=== PATIENT | female | born 1965 ===

== ENCOUNTER 2016-11-18 17:44 | Inpatient (IN) | payer MEDICAID ==
[~2016-11-18] VITALS: Ht 175.3 cm; Wt 80.2 kg
[~2016-11-18 17:44] MED LIST: MELO-259 PO
[2016-11-18 18:00] VITALS: BP 112/71; PULSE 129; RESP 22; O2SAT 100
[2016-11-18 18:23] LABS: EOSINOPHILS % (AUTO) 0.2 % (0-5)
[2016-11-18 18:30] LABS: BASOPHILS % (AUTO) 0.7 % (0-3); MONOCYTES % (AUTO) 10.6 % (4-12); Mean Corpuscular Hemoglobin 29.9 pg (27.0-35.0); Mean Corpuscular Volume 94.7 fL (81-100); NEUTROPHILS % (AUTO) 56.9 % (40-74); Platelet Count 94 bil/L (150-400)
[2016-11-18 18:53] LABS: Magnesium 1.7 mg/dL (1.6-2.6)
--- NOTE | 2016-11-18 20:39 | ED.REPORT ---
HPI-Abd Pain F 40 and Over Date of Service Nov 18, 2016 ED Provider: Nathan Chahal MD A 51 year old female with a history of HIV presents to the ED complaining of abdominal pain. She began feeling a sharp, constant pain yesterday morning in addition to fever, shortness of breath, nausea, vomiting and feeling "off- balanced." The pt has vomited approximately ten times since onset, and states that the vomit appears "dark with yellow on top." She denies diarrhea, chest pain, rash, cough or dysuria. The symptoms have increased in severity since onset. The pt denies recent surgery or exposure to other sick individuals. The pt drinks alcohol regularly, but has not consumed alcohol in two days. She denies withdrawal symptoms. Nursing Notes Stated Complaint: STOMACH PAIN Chief Complaint: Female Abdominal Pain Nursing Notes Reviewed: Yes ([employer] not reconciled) Allergies: Uncoded Allergies: ANTIBIOTIC (Allergy, Unknown, 01/12/15) Scheduled Meloxicam (Meloxicam) 7.5 Mg Tablet 7.5 MG PO DAILY Scheduled PRN Ondansetron ODT (Ondansetron ODT) 8 Mg Tab.rapdis 8 MG PO Q4H PRN PRN For Nausea General Time Seen by MD: 20:23 Chief Complaint Abdominal pain Hx Obtained From: Patient Arrived By: Walk-in Sudden in Onset?: No Onset Occurred: 1 day ago Symptom Duration: Since onset Recent Healthcare: No recent hospitalization Similar Sx Previous: No Past Medical History Past Medical History Notes: Infectious disease MD is in [place] Past Medical History HIV ?h/o liver Past Surgical History none reported Family History Noncontributory Smoking History Never Smoker Social History Alcohol Use: 1-3 per day Other Social History: Good social support, Local resident Ambulatory Status Independent Review of Systems feeling off-balanced Constitutional: Reports: Fever Respiratory: Reports: Shortness of breath, Denies: Non-productive cough Cardiovascular: Denies: Chest pain GI: Reports: Nausea, Vomiting ("dark"), Denies: Diarrhea Female: Denies: Dysuria Musculoskeletal: Denies: Back pain, Neck pain Complete sys rev & neg: except as marked. Physical Exam Physical Exam Notes: no overt signs of surgical admit on clinical exam Vital Signs Vital Signs (First) Date Time Temp Pulse Resp B/P Pulse Ox O2 Delivery O2 Flow Rate FiO2 11/18/16 18:00 36.7 129 22 112/71 100 Room Air Initial VS: Reviewed, Vital signs normal General/Constitutional: Awake, Alert fatigued Respiratory / Chest: Atraumatic, Breath sounds NL, Breath sounds = bilat, No respiratory distress Cardiovascular: Regular rhythm, Heart sounds NL Heart Rate / Rhythm: Positive: Tachycardia Abdomen: Atraumatic, Soft, No guarding, No rebound trace tenderness Back: Atraumatic, Full range of motion Head / Eyes: Atraumatic, Normocephalic, PERRL, EOMI ENT: Atraumatic, Airway patent, Mucous membranes moist Skin: Atraumatic, Color NL, No rash, Warm, Dry Neurologic: Oriented X3, Speech NL, No motor deficits, No sensory deficits Neck: Atraumatic, Supple, Full range of motion Upper Extremity / MS: Atraumatic, Full range of motion Lower Extremity / Pelvis / MS: Atraumatic, Full range of motion Psychiatric: Affect NL, Mood NL Interpretation & Diagnostics Lab Results Interpretation Result Diagram: 11/19/16 0135 11/18/16 1815 Test 11/18/16 18:15 11/19/16 00:50 11/19/16 01:35 Neutrophils (%) (Auto) 56.9% (40-74) Lymphocytes (%) (Auto) 31.4% (14-46) Monocytes (%) (Auto) 10.6% (4-12) Eosinophils (%) (Auto) 0.2% (0-5) Basophils (%) (Auto) 0.7% (0-3) Prothrombin Time 14.5sec (8.1-12.5) Prothromb Time International Ratio 1.35ratio Sodium Level 140mEq/L (134-144) Potassium Level 4.1mEq/L (3.5-5.2) Chloride Level 102mEq/L (97-108) Carbon Dioxide Level 24mmol/L (18-29) Blood Urea Nitrogen 14mg/dL (6-24) Creatinine 0.43mg/dL (0.57-1.00) Estimat Glomerular Filtration Rate 221mL/min (>59) Glucose Level 94mg/dL (60-99) Calcium Level 8.6mg/dL (8.5-10.1) Magnesium Level 1.7mg/dL (1.6-2.6) Total Bilirubin 1.7mg/dL (0.0-1.2) Aspartate Amino Transf (AST/SGOT) 104U/L (0-50) Alanine Aminotransferase (ALT/SGPT) 37U/L (0-32) Alkaline Phosphatase 124U/L (25-150) Total Protein 7.2g/dL (6.4-8.4) Albumin 2.9g/dL (3.4-5.0) Lipase 55U/L (13-60) Hold Chandler Top Tube Received (Received) Urine Color Yellow (YELLOW) Urine Appearance Slightly cloudy Urine pH 7.5 (5.0-8.0) Urine Specific [place] 1.010 (1.003-1.035) Urine Protein Negativemg/dL (NEG,TRACE) Urine Glucose (UA) Negativemg/dL (NEGATIVE) Urine Ketones 15mg/dL (NEGATIVE) Urine Occult Blood Negative (NEGATIVE) Urine Nitrite Positive (NEGATIVE) Urine Bilirubin Negative (NEGATIVE) Urine Urobilinogen Normalmg/dL (NORMAL) Urine Leukocyte Esterase Negative (NEGATIVE) Urine RBC 0-2/hpf (0-2) Urine WBC 0-5/hpf (0-5) Urine Epithelial Cells Occasional/hpf (NONE-MOD) Urine Crystals None seen (NONE SEEN) Urine Bacteria Moderate/hpf (NONE-FEW) Urine Hyaline Casts None/lpf (NONE) Urine Granular Casts None seen (NONE SEEN) Urine Waxy Casts None seen (NONE SEEN) Urine Red Blood Cell Casts None seen (NONE SEEN) Urine White Blood Cell Casts None seen (NONE SEEN) Urine Mucus None seen (None Seen) Urine Trichomonas None seen (NONE SEEN) Urine Yeast None (NONE SEEN) Urinalysis Comment None Urine Culture Reflexed Indicated White Blood Count 4.0th/mm3 (3.8-10.1) Red Blood Count 3.05mil/mm3 (3.90-5.20) Hemoglobin 9.2g/dL (12.0-15.6) Hematocrit 29.1% (35.0-46.0) Mean Corpuscular Volume 95.4fL (81-100) Mean Corpuscular Hemoglobin 30.2pg (27.0-35.0) Mean Corpuscular Hemoglobin Concent 31.6% (32.0-37.0) Red Cell Distribution Width 15.7% (12.3-15.4) Platelet Count 71bil/L (150-400) Lab Results Interpretation: CBC normal, with mild anemia, mild thrombocytopenia of chronic liver disease repeat hematocrit goes a drop in hematocrit, platelet count also mildly low CMP abnormalities, chronic INR ECG Interpretation ECG Interpretation: sinus tachycardia with a rate of 112 Time: 19:37 Interpreted by: ED physician CT Abd / Pelvis Interpretation IMPRESSION: 1. No acute disease process identified. 2. No free fluid or free air. 3. No dilated loops of bowel. 4. Hepatic cirrhosis with sequela of portal venous hypertension including gastroesophageal, mesenteric and perisplenic venous varices. 5. Status post cholecystectomy. 6. 4 mm nonobstructing right renal stone. 7. 2.2 cm right adrenal nodule. Recommend dedicated MRI of the adrenal glands for definitive characterization. 8. Colonic diverticulosis without evidence of diverticulitis. 1. The appendix is normal. Dictated by: Jayne Vigil MD, PhD on 11/18/2016 at 21:36 Approved by: Jayne Vigil MD, PhD on 11/18/2016 at 21:44 Interpretation / Wet Read by: Interpret - Radiologist Re-Eval/Medical Decision Med Decision/Clinical Course This is a 51-year-old female presents complaining of abdominal pain and vomiting. She reports about 10 episodes of emesis overall, reports some changing colors, maybe some dark material. No fevers. No prior history of GI bleeding. She denies NSAID or aspirin use. Only medications are for HIV. She reports she is generally done well from an HIV standpoint. She has no prior history of GI bleeding or peptic ulcer disease. On initial exam she is notably tachycardic, but is normotensive. She appears fatigued, but nontoxic. Her abdomen is mildly tender, but without guarding or rebound. IV was placed received titrated pain and nausea medicine but continued to have some ongoing nausea. She had no point had a clinically acute surgical abdomen or peritonitis. I will reveal no significant leukocytosis but is notable for trace anemia and mild thrombocytopenia. Chest has some marginal LFT abnormalities. CT abdomen and pelvis was obtained that was normal. She initially seemed to be doing better fluids and pain and nausea medicine and initial plan was to discharge her home, and then the patient had recurrence of the nausea vomiting requiring additional medicines-she vomited some brownish material that was guaiac positive. At this point it was also noted she was still persistently tachycardic despite fluid, so this point repeat labs were obtained-this was notable for marginal drop in hematocrit down to 29 with worsening anemia. She had received 2 L of fluids of the differential includes hemorrhage versus hemodilution. Both ongoing symptoms, anemia, thrombocytopenia , and persistent symptoms-at this point the plan is admission for continued monitoring and a.m. GI consultation. Patient is being typed and crossed, she has been started up a chronic degenerative given the persistent tachycardia, anemia, hematemesis. The presentation is atypical for classic dyspepsia, and the differential includes a Valeria-Chen tear, but as described above all features are not sufficient to indicate a need for admission for continued care. System discussed with the hospitalist. Given the patient's heart rate is improved, given she is currently stable and is not a need for emergent EGD at this late hour, the plan is to have the a.m. hospitalist call GI for consultation. Repeat hematocrits planned for the morning. Patient is admitted in improved condition. Source of Hx: Old records Re-Evaluation/Progress #1: Time of Eval: 00:40 Re-Evaluation/Progress Note: Pt rechecked, who is resting. The plan for further treatment is discussed. Re-Evaluation/Progress #2: Time of Eval: 02:29 Patient Status: Condition improved Re-Evaluation/Progress Note: Pt rechecked, who is resting. The diagnosis and plan for admission are discussed. The pt understands and agrees with the plan. All questions are addressed at this time. 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 Mazariegos, hospitalist, regarding pt's case. Dr. Mazariegos agrees with the evaluation and agrees to admit the pt. Differential Diagnosis: Positive: Acute abdominal pain, Negative: Cellulitis, Contusion abdominal wall, Ectopic , Esophageal rupture, Gun shot wound abdomen, Pancreatitis, Peritonitis Counseled Regarding: Diagnosis, Lab results, Need for admission Discharge & Departure Primary Impression: Abdominal pain Abdominal location: unspecified location Qualified Code: R10.9 - Unspecified abdominal pain Additional Impressions: GI bleed GI bleed type/associated pathology: unspecified gastrointestinal hemorrhage type Qualified Code: K92.2 - Gastrointestinal hemorrhage, unspecified Anemia Anemia type: unspecified type Qualified Code: D64.9 - Anemia, unspecified Thrombocytopenia Tachycardia Disposition: ADMITTED TO HOSPITAL Discharge Condition All VS Reviewed: Yes Condition: Stable Additional Instructions: 1. A dangerous or definitive cause of the abominal pain was not identified. 2. Your blood tests, urine tests, and CT Scan were normal. 3. Rest. 4. Take ondansetron (let dissolve under the tongue) up to every 4 hours as needed for nausea. 5. If needed for pain take oxycodone/APAP 5/325 1-2 tabs up to every 6 hours. Use sparingly. NOTE: This medication contains narcotic and causes drowsiness, no driving for at least 4-6 hours after taking 6. In terms or expected to be resolving with time. If he developed new, worsening or uncontrolled symptoms, return to the emergency department. Referrals: [facility] Scribe Attestation Portions of this note were transcribed by Milvia Lomax. I, Dr. Chahal personally performed the history, physical exam and medical decision-making; I reviewed and confirmed the accuracy of the information in the transcribed note. Signed by: Alicia Burciaga, 11/19/2016 and 0235. copies to: [facility] Nathan Chahal MD Nov 18, 2016 20:39 MILVIA LOMAX Nov 18, 2016 20:49
[2016-11-18] MEDS ORDERED: Ondansetron 2 mg/mL 2 mL Inj IVPUSH ONE (20:50)
[2016-11-18] MEDS ORDERED: 0.9% Sodium Chloride 1,000 ML IV ONE ×2 (20:50)
[2016-11-18] MEDS ORDERED: HYDROmorphone 0.5 mg/0.5 mL iSecure Syringe IVPUSH PRN (20:50)
--- NOTE | 2016-11-18 21:45 | DRSVH ---
PROCEDURE: CT ABDOMEN AND PELVIS WITH CONTRAST ([id number]) INDICATIONS: ABd Pain TECHNIQUE: After the administration of intravenous contrast, 5 mm thick sections acquired from the diaphragm to the symphysis. 5 mm coronal and sagittal reformats were acquired. For radiation dose reduction, the following was used: automated exposure control, adjustment of mA and/or kV according to patient siz e. COMPARISON: None. FINDINGS: Image quality: Excellent. ABDOMEN: Lung bases: Lung bases are clear. Heart size is normal. Solid organs: Liver is nodular margins compatible with hepatic cirrhosis. Diffuse fatty infiltratio n the liver is noted. Recanalization of the umbilical vein is noted. Gastroesophageal and perisplen ic venous varices are noted. The portal splenic venous system demonstrates normal enhancement. Gall bladder is surgically absent the. Biliary system is non dilated. Pancreas enhances normally. 2.2 cm right adrenal nodule is noted which has density measurements of 31 Hounsfield units. Kidneys demons trate normal size and enhancement, without hydronephrosis. 4 mm nonobstructing left renal stone is no agnes. Peritoneum and bowel: Bowel loops demonstrate normal wall thickness and caliber. Scattered diverticu li noted in the sigmoid colon without evidence of diverticulitis. No free fluid or air. The appendix is normal. Nodes and vessels: No retroperitoneal or mesenteric adenopathy by size criteria. Aorta and inferior vena cava are normal in size. Miscellaneous: No ventral hernias. PELVIS: Genitourinary: Bladder wall thickness is normal. Miscellaneous: No inguinal hernias or adenopathy. Bones: No suspicious bony lesions. No vertebral body compression fractures. Spine degenerative dise ase and facet arthropathy noted. IMPRESSION: 1. No acute disease process identified. 2. No free fluid or free air. 3. No dilated loops of bowel. 4. Hepatic cirrhosis with sequela of portal venous hypertension including gastroesophageal, mesenter ic and perisplenic venous varices. 5. Status post cholecystectomy. 6. 4 mm nonobstructing right renal stone. 7. 2.2 cm right adrenal nodule. Recommend dedicated MRI of the adrenal glands for definitive charac terization. 8. Colonic diverticulosis without evidence of diverticulitis. 1. The appendix is normal. Dictated by: Jayne Vigil MD, PhD on 11/18/2016 at 21:36 Approved by: Jayne Vigil MD, PhD on 11/18/2016 at 21:44
[2016-11-18 22:00] VITALS: BP 127/53; PULSE 119; RESP 18; O2SAT 99
[2016-11-18 23:00] VITALS: BP 117/55; PULSE 115; RESP 18; O2SAT 99
[2016-11-19] VITALS (11 sets, daily range): BP systolic 103–119; BP diastolic 51–66; PULSE 78–119; RESP 16–20; O2SAT 96–99
[2016-11-19] MEDS ORDERED: HYDROmorphone 0.5 mg/0.5 mL iSecure Syringe IVPUSH ONE (00:45)
[2016-11-19] MEDS ORDERED: _Ondansetron ODT 4 mg Tablet PO PRN (00:45)
[2016-11-19] MEDS ORDERED: _oxyCODONE/APAP 5-325 mg Tablet PO PRN (00:45)
[2016-11-19] MEDS ORDERED: ONDA8TAB10 PO (00:53)
[2016-11-19] MEDS ORDERED: Ondansetron 2 mg/mL 2 mL Inj IVPUSH PRN ×5 (01:05→16:40)
[2016-11-19 01:20] LABS: APPEARANCE,URINE SLIGHTLY CLOUDY (CLEAR,HAZY); COLOR,URINE YELLOW (YELLOW); OCCULT BLOOD,URINE NEGATIVE (NEGATIVE); PH,URINE 7.5 (5.0-8.0); UROBILINOGEN,URINE NORMAL (NORMAL)
[2016-11-19 01:48] LABS: Mean Corpuscular Hemoglobin 30.2 pg (27.0-35.0); Mean Corpuscular Volume 95.4 fL (81-100)
[2016-11-19] MEDS ORDERED: Pantoprazole 4 mg/mL 10 mL Inj IVPUSH ONE (02:00)
[2016-11-19] MEDS ORDERED: Pantoprazole Inj 80 MG, Pharmacy To Mix 1 EA in 0.9% Sodium Chloride 80 ML IV ONE ×2 (02:00)
[2016-11-19 02:24] LABS: INR 1.35 ratio
[2016-11-19] MEDS ORDERED: Alum-Mag Hydrox-Simeth 30 mL Suspension PO PRN ×2 (02:35→13:25)
[2016-11-19] MEDS ORDERED: HYDROmorphone 1 mg/mL Inj IVPUSH PRN (02:35)
--- NOTE | 2016-11-19 03:30 | NUR ---
Admission Pt arrived to Room 2027 at approximately 0330 with protonix running at 10ml/hr and was able to walk with a steady gait from the gurney to the bed. Pt is AOx3, and GUY, and VSS. Pt sat on bed and had approximately 75ml brown, watery emesis and had bright red blood coming from nose once the pt was done vomiting.
[2016-11-19 05:53] LABS: BASOPHILS % (AUTO) 0.3 % (0-3); EOSINOPHILS % (AUTO) 0 % (0-5); MONOCYTES % (AUTO) 7.5 % (4-12); Mean Corpuscular Hemoglobin 29.9 pg (27.0-35.0); Mean Corpuscular Volume 96.3 fL (81-100); Platelet Count 71 bil/L (150-400)
--- NOTE | 2016-11-19 07:20 | PCM.PNMED ---
Subjective Date of Service Nov 19, 2016 Subjective Mariano Guevara is a 51 year old female with past medical history of HIV, who presents to the ED with chief complaint of abdominal pain. She began feeling a sharp, constant pain yesterday morning in addition to fever, shortness of breath, nausea, vomiting and feeling "off-balanced." The pain is right sided and symptoms have increased in severity since onset. She mentions she's vomited 10 times since this has started and reports seeing some blood. She denies diarrhea, chest pain, rash, cough, or dysuria. She mentions she's been urinating more lately, but no dysuria. She does have history of kidney stones, which she mentions the pain feels similar to. She's having some associated back pain. She denies any history of abdominal surgeries. Last bowel movement was 2 days ago and she has been passing gas. She denies any sick contacts and mentions she has her usual meals lately. She has been drinking 6 beers daily for the last month, with her last drink reportedly 2 days ago. She denies history of seizures or any withdrawal symptoms at this time. In the ED, she had an episode of guiaic positive emesis and a slight decrease in hemoglobin from 10.2 to 9.2, so she was subsequently admitted for monitoring. Exam Vital Signs Vital Sign - Last Date Time Temp Pulse Resp B/P Pulse Ox O2 Delivery O2 Flow Rate FiO2 11/19/16 05:24 103 11/19/16 03:52 36.6 20 106/58 99 Room Air Intake and Output 11/18/16 11/18/16 11/19/16 Cumulative From/Thru 15:00 23:00 07:00 11/18/16 18:00 - 11/19/16 03:52 Intake Total 2000 ml 2000 ml Balance 2000 ml 2000 ml Intake IV Total 2000 ml 2000 ml Exam General: Mild distress due to dry heaving throughout encounter, well-developed, well-nourished, somewhat somnolent as awaken from sleep. HEENT: Normocephalic, atraumatic. External ears without defect. Pupils equal, round, and reactive to light and accommodation. Anicteric sclerae, moist conjunctivae. Oropharynx free of erythema and cobble stoning with moist mucosa. Neck: Supple with full range of motion. No jugular venous distension. No bruits. No lymphadenopathy or thyromegaly. Cardiovascular: Regular rate and rhythm with no murmurs, rubs, or gallops appreciated Pulmonary: Clear to auscultation bilaterally with no crackles, wheezes, or rhonchi. Normal respiratory effort with no use of accessory muscles. Abdomen: Bowel tones present. Soft, RUQ and RLQ tenderness, positive segundo's sign, nondistended. No hepatosplenomegaly or masses appreciated. No rebound tenderness. Extremities: No clubbing, cyanosis, edema, or lymphadenopathy appreciated. Skin: Normal temperature, turgor, and texture; no rash, ulcers. Neurological: Cranial nerves grossly intact. Normal muscle strength, tone, and bulk. Reflexes, coordination, and sensory function within normal limits. No known gait impairment. Psychiatric: Normal mood and affect. Alert and oriented to person, place, and time. Lab and Diagnostics Item Value Date Time Urine Color Yellow 11/19/1649 Urine pH 7.5 11/19/1649 Urine Occult Blood Negative 11/19/1649 Urine Nitrite Positive 11/19/1649 Urine Leukocyte Esterase Negative 11/19/1649 Urine RBC 0-2 /hpf 11/19/1649 Urine WBC 0-5 /hpf 11/19/1649 Urine Bacteria Moderate /hpf 11/19/1649 Lipase 55 U/L 11/18/161814 Hemoglobin 10.2 g/dL L 11/18/161814 Hemoglobin 9.2 g/dL L 11/19/16134 Hemoglobin 8.8 g/dL L 11/19/16524 Hematocrit 32.3 % L 11/18/161814 Hematocrit 29.1 % L 11/19/16134 Hematocrit 28.3 % L 11/19/16524 Prothrombin Time 14.5 sec H 11/18/161814 Prothromb Time International Ratio 1.35 ratio 11/18/161814 Result Diagram: 11/19/1652411/19/16529 Microbiology Item Value Date Time Urine Culture Received 11/19/1649 Urine,Random Sterile Container Pending X-Rays, CTs and MRIs PROCEDURE: CT ABDOMEN AND PELVIS WITH CONTRAST ([id number]) IMPRESSION: 1. No acute disease process identified. 2. No free fluid or free air. 3. No dilated loops of bowel. 4. Hepatic cirrhosis with sequela of portal venous hypertension including gastroesophageal, mesenteric and perisplenic venous varices. 5. Status post cholecystectomy. 6. 4 mm nonobstructing right renal stone. 7. 2.2 cm right adrenal nodule. Recommend dedicated MRI of the adrenal glands for definitive characterization. 8. Colonic diverticulosis without evidence of diverticulitis. 1. The appendix is normal. Dictated and Approved by: Jayne Vigil MD, PhD on 11/18/2016 at 21:36 Assessment & Plan Mariano Guevara is a 51 year old female with past medical history of HIV, who presents to the ED with chief complaint of abdominal pain found to have guiaic positive emesis with normocytic anemia. Normocytic Anemia, Present on admission. Active Unclear if this is secondary to an acute upper GI bleed, however hemoglobin has been very slowly downtrending and patient did have guiaic positive emesis in the ED. May be secondary to hemodilution as well. - Monitor H/H q4h - Dr. Glass to do scope 11/20/16 - NPO after midnight - Transfusion goal: If hemoglobin is less than 7, transfuse 2 units PRBC's. Abdominal Pain, Present on admission. Active Patient had 10/10 pain on presentation, worse on the right side. Positive Segundo 's sign. Patient mention she has never had her gallbladder removed, but CT scan report shows status post cholecystectomy. 4 mm nonobstructing stone on CT on the right. Worse with movement. - Abdominal US ordered - Morphine 0.5 mg IV q4h for pain - Zofran for nausea Alcohol dependence, Present on admission. Active Patient has been drinking 6 beers a day for the last month, reportedly 2 days out from her last drink - CIWA protocol started - Ativan as needed - Banana bag started HIV, Present on admission, Chronic Per patient report. Unknown history or control of HIV. - Will order CD4 and Viral Load Code Status: Full code Patient Status: Patient is admitted under observation status with expected length of stay less than 2 midnights due to risk of adverse event. GI Prophylaxis: Proton Pump Inhibitor (Protonix drip) VTE Prophylaxis: SCDs Resuscitation Status: CPR: Attempt Resuscitation Yeison Springer DO Nov 19, 2016 07:20 Yeison Springer DO Nov 19, 2016 07:20
[2016-11-19] MEDS: 0.9% Sodium Chloride 1,000 ML IV SCH ×2 (09:54→13:26)
[2016-11-19] MEDS ORDERED: Thiamine Inj 100 MG, Folic Acid Inj 1 MG, Magnesium Sulfate 50% Inj 2 GM, Multivitamins... IV ONE ×5 (11:05)
[2016-11-19] MEDS: Multivit-Miner-Folic Acid-Iron Tablet PO SCH (11:05)
[2016-11-19] MEDS ORDERED: Polyethylene Glycol (PEG) 17 Gm Powder PO PRN (13:25)
[2016-11-19] MEDS: Pantoprazole Inj 80 MG in 0.9% Sodium Chloride 80 ML IV SCH (13:32)
--- NOTE | 2016-11-19 18:58 | NUR ---
Dry Heaving/Drowsy/Pain No reports of chest pain/pressure/discomfort. Tele SR 80s, no ectopy. No reports of SOB/dizziness. SPO2 on RA mid to high 90s. Reports rare dry cough. No voiding throughout AM, one large void this afternoon of 1,000mls. Reports continuous mild-moderate nausea, intermittent episodes of dry heaving with no emesis. Administered 4mg IV zofran x1, no further dry heaving. NPO at midnight for possible endo intervention in AM. Reports continuous abdominal pain (right upper quadrant that wraps around to back) 7-8/10 at rest. Patient drowsy and slept throughout most of shift. Administered 0.5mg IV Dilaudid x1 with scheduled 1 time dose of Ketorolac IV, patient reported relief. Last check in at 1840, reports she is feeling mildly better.
--- NOTE | 2016-11-19 19:56 | PCM.HPMED ---
Subjective Date of Service Nov 19, 2016 Primary Provider: Admitting Physician: Leisa Mazariegos DO Primary Care Physician: Rachell Attending Physician: Krishna Souza MD Admit Status: From the Emergency Department Chief Complaint: Abdominal Pain Hematemesis History of Present Illness: Mariano Guevara is a 51 year old female with past medical history of HIV, who presents to the ED with chief complaint of abdominal pain. She began feeling a sharp, constant pain yesterday morning in addition to fever, shortness of breath, nausea, vomiting and feeling "off-balanced." The pain is right sided and symptoms have increased in severity since onset. She mentions she's vomited 10 times since this has started and reports seeing some blood. She denies diarrhea, chest pain, rash, cough, or dysuria. She mentions she's been urinating more lately, but no dysuria. She does have history of kidney stones, which she mentions the pain feels similar to. She's having some associated back pain. She denies any history of abdominal surgeries. Last bowel movement was 2 days ago and she has been passing gas. She denies any sick contacts and mentions she has her usual meals lately. She has been drinking 6 beers daily for the last month, with her last drink reportedly 2 days ago. She denies history of seizures or any withdrawal symptoms at this time. In the ED, she had an episode of guiaic positive emesis and a slight decrease in hemoglobin from 10.2 to 9.2, so she was subsequently admitted for monitoring. Review of Systems: A comprehensive review of systems was conducted with the patient and found to be negative except as above in the History of Present Illness. Allergies Uncoded Allergies: ANTIBIOTIC (Allergy, Unknown, 01/12/15) Home Medications She is uncertain of her medications, but mentions she takes 2 for HIV PMH HIV Surgical History None Reported Family History Noncontributory Social History Hx Alcohol Use: Yes (says hasn't had a drink in a few days) Alcoholic Drinks Per Day: 6 pack or more Hx Substance Use: Yes Smoking Status: Never Smoker Exam Vital Signs Vital Sign - Last Date Time Temp Pulse Resp B/P Pulse Ox O2 Delivery O2 Flow Rate FiO2 11/19/16 17:05 37.2 78 18 110/62 96 Room Air Intake and Output 711/18/16 11/19/16 Cumulative From/Thru 15:00 23:00 07:00 11/18/16 18:00 - 11/19/16 03:52 Intake Total 2000 ml 2000 ml Balance 2000 ml 2000 ml Intake IV Total 2000 ml 2000 ml Exam General: Mild distress due to dry heaving throughout encounter, well-developed, well-nourished, somewhat somnolent as awaken from sleep. HEENT: Normocephalic, atraumatic. External ears without defect. Pupils equal, round, and reactive to light and accommodation. Anicteric sclerae, moist conjunctivae. Oropharynx free of erythema and cobble stoning with moist mucosa. Neck: Supple with full range of motion. No jugular venous distension. No bruits. No lymphadenopathy or thyromegaly. Cardiovascular: Regular rate and rhythm with no murmurs, rubs, or gallops appreciated Pulmonary: Clear to auscultation bilaterally with no crackles, wheezes, or rhonchi. Normal respiratory effort with no use of accessory muscles. Abdomen: Bowel tones present. Soft, RUQ and RLQ tenderness, positive segundo's sign, nondistended. No hepatosplenomegaly or masses appreciated. No rebound tenderness. Extremities: No clubbing, cyanosis, edema, or lymphadenopathy appreciated. Skin: Normal temperature, turgor, and texture; no rash, ulcers. Neurological: Cranial nerves grossly intact. Normal muscle strength, tone, and bulk. Reflexes, coordination, and sensory function within normal limits. No known gait impairment. Psychiatric: Normal mood and affect. Alert and oriented to person, place, and time. Lab and Diagnostics Labs Item Value Date Time Urine Color Yellow 11/19/16 0050 Hemoglobin 8.5 g/dL L 11/19/16 1319 Hematocrit 27.5 % L 11/19/16 1319 Hemoglobin 8.8 g/dL L 11/19/16 0525 Hematocrit 28.3 % L 11/19/16 0525 Lipase 55 U/L 11/18/16 1815 Aspartate Amino Transf (AST/SGOT) 104 U/L H 11/18/16 181 Alanine Aminotransferase (ALT/SGPT) 37 U/L H 11/18/16 181 Alanine Aminotransferase (ALT/SGPT) 30 U/L 11/19/16 0530 Aspartate Amino Transf (AST/SGOT) 95 U/L H 11/19/16 0530 Result Diagram: 11/19/16 1810 11/19/16 05 Microbiology Item Value Date Time Urine Culture Received 11/19/16 0050 Urine,Random Sterile Container Pending X-Rays, CTs and MRIs PROCEDURE: CT ABDOMEN AND PELVIS WITH CONTRAST ([id number]) IMPRESSION: 1. No acute disease process identified. 2. No free fluid or free air. 3. No dilated loops of bowel. 4. Hepatic cirrhosis with sequela of portal venous hypertension including gastroesophageal, mesenteric and perisplenic venous varices. 5. Status post cholecystectomy. 6. 4 mm nonobstructing right renal stone. 7. 2.2 cm right adrenal nodule. Recommend dedicated MRI of the adrenal glands for definitive characterization. 8. Colonic diverticulosis without evidence of diverticulitis. 1. The appendix is normal. Dictated and Approved by: Jayne Vigil MD, PhD on 11/18/2016 at 21:36 12-lead ECG Sinus Tachycardia Assessment & Plan Mariano Guevara is a 51 year old female with past medical history of HIV, who presents to the ED with chief complaint of abdominal pain found to have guiaic positive emesis with normocytic anemia. Normocytic Anemia, Present on admission. Active Unclear if this is secondary to an acute upper GI bleed, however hemoglobin has been very slowly downtrending and patient did have guiaic positive emesis in the ED. May be secondary to hemodilution as well. - Monitor H/H q4h - Dr. Glass to do scope 11/20/16 - NPO after midnight - Transfusion goal: If hemoglobin is less than 7, transfuse 2 units PRBC's. Abdominal Pain, Present on admission. Active Patient had 10/10 pain on presentation, worse on the right side. Positive Segundo 's sign. Patient mention she has never had her gallbladder removed, but CT scan report shows status post cholecystectomy. 4 mm nonobstructing stone on CT on the right. Worse with movement. - Abdominal US ordered - Morphine 0.5 mg IV q4h for pain - Zofran for nausea Alcohol dependence, Present on admission. Active Patient has been drinking 6 beers a day for the last month, reportedly 2 days out from her last drink - CIWA protocol started - Ativan as needed - Banana bag started HIV, Present on admission, Chronic Per patient report. Unknown history or control of HIV. - Will order CD4 and Viral Load Code Status: Full code Patient Status: Patient is admitted under observation status with expected length of stay less than 2 midnights due to risk of adverse event. GI Prophylaxis: Proton Pump Inhibitor (Protonix drip) VTE Prophylaxis: SCDs Resuscitation Status: CPR: Attempt Resuscitation Attending Statement The patient was seen and examined together with Dr. Springer on 11/19/2016 and I agree with the history, exam and plan as outlined in the note above. . Yeison Springer DO Nov 19, 2016 19:56 Krishna Souza MD Nov 20, 2016 07:44
[2016-11-20] VITALS (13 sets, daily range): BP systolic 97–117; BP diastolic 56–62; PULSE 73–82; RESP 14–16; O2SAT 95–100
[2016-11-20] MEDS ORDERED: Propofol 10,000 mCg/mL 20 mL Inj ONE (03:07)
[2016-11-20] MEDS: Pantoprazole Inj 80 MG in 0.9% Sodium Chloride 80 ML IV SCH ×2 (03:49→07:30)
--- NOTE | 2016-11-20 06:53 | NUR ---
Toileting Pt got up to use the toilet only once during the operative supervisor. Pt's urine was very cloudy rissa and blood tinged. Pt did have a medium, formed brown stool and it was in the toilet so no GUAIAC could be done. The pt's toilet paper had a smear of landy blood on it. Pt was asked if she has hemorrhoids and the pt denied having hemorrhoids. Pt was asked if she still menstruated and pt said that she no longer has periods. Pt was asked if her urine normally looked like this and she said that it didn't and denied any pain upon urination. Pt's total output was 1,000cc of urine.
[2016-11-20] MEDS: Multivit-Miner-Folic Acid-Iron Tablet PO SCH (08:30)
[2016-11-20] MEDS: cefTRIAXone Inj 1,000 MG in Dextrose 5% Minibag Plus 50 ML IV SCH (11:00)
[2016-11-20] MEDS ORDERED: MetoCLOpramide 5 mg/mL 2 mL Inj IVPUSH PRN (11:10)
[2016-11-20] MEDS ORDERED: Lactated Ringer's 1,000 ML IV SCH (11:10)
[2016-11-20] MEDS ORDERED: Lactated Ringer's 1,000 ML IV ONE (11:10)
[2016-11-20] MEDS ORDERED: Ondansetron 2 mg/mL 2 mL Inj IVPUSH PRN (11:10)
--- NOTE | 2016-11-20 11:12 | PCM.HPANE ---
Patient Data Date of Service: Nov 20, 2016 Surgeon Admitting Provider:Leisa Mazariegos DO Attending Provider:Krishna Souza MD Primary Care Physician:Nopcp Other Provider: Reason for Visit Gi Bleed/Anemia Ht/WT & BMI Height (Feet): 5 Height (Inches): 9.00 Weight (Kilograms): 80.700 Body Mass Index 26.58 Allergies Uncoded Allergies: ANTIBIOTIC (Allergy, Unknown, 01/12/15) Past Anesthesia History Anesthesia History: Denies:: Abnormal Airway, Anesthesia Reactions Diabetes History Hx Diabetes?: No MRSA MRSA: Yes Medications Hypertension Medication: No Home Meds Incl Beta Daniel: No Active Scripts Ondansetron ODT 8 Mg Tab.rapdis8 Mg PO Q4H PRN For Nausea #10 TABLET Prov:Nathan Chahal MD 11/19/16 Meloxicam 7.5 Mg Tablet7.5 Mg PO DAILY #30 TABLET Ref 0 Prov:Ace Godoy MD 01/19/16 History History of ENT Problems?: No HEENT History: Denies:: Abnormal Airway Denture Type: None Teeth Condition: Broken Teeth Tooth Decay Missing Teeth Hx of Heart Problems?: Yes (tachycardia) Cardiovascular History: Denies:: Congestive Heart Failure Hypertension Hx of Respiratory Problem?: Yes Respiratory History: Positive for:: Dyspnea (when pt has a panic attack) Denies:: Asthma COPD Chest Surgery Emphysema Hemoptysis Pneumonia Tuberculosis Hx Neurologic Problems?: Yes Neurological History: Positive for:: CVA (residual left-sided weakness) Headaches Denies:: Dementia Dizziness Parkinson's Disease Seizures Hx of GI Problems?: Yes (abdominal pain) Gastrointestinal History: Positive for:: Cirrhosis Hx of Problems?: Yes Genitourinary History: Positive for:: Kidney Stones HX of Peritoneal Dialysis: No Female Hx: Denies:: Currently Endometriosis Pelvic Inflammatory Problems with Breasts? Hx Musculoskeletal Problems?: No Musculoskeletal History: Denies:: Back Injury Joint Replacement Musculoskeletal Trauma Hx of Psycho/Social Problems?: Yes Psycho Social History: Positive for:: Anxiety Hx Depression Denies:: Bipolar Disorder Suicide Attempt Hx Surgeries?: No Hx Any Other Health Problems?: Yes (HIV) Other History: Denies:: Cancer Hospitalization Thyroid Disease History Blood Transfusions: Positive for:: Accept Blood Products? Blood Transfusions Denies:: Blood Transfuse Reaction Hx Diabetes: No Hx Alcohol Use: Yes (says hasn't had a drink in a few days)Alcoholic Drinks Per Day: 6 pack or moreHx Substance Use: Yes Smoking Status: Never Smoker Have You Smoked inLast 12 mo: No Stop/Bang Treated for Sleep Apnea?: No Do You Have a CPAP Machine?: No S-Snoring: Do You Snore Loudly: No T-Tired: feel tired, fatigued: No O-Obsered: Observed not breath: No P-Blood Pressure: treated: No B- Body Mass Index > 35 kg/m2: No A- Age over 50: Yes N- Neck Large Circumference: No G- Gender Male: No EVIE Total Score: 0 Risk Assessment Category Category 1A: Patient has history of documented sleep apnea, and HAS NOT received any narcotic, sedative or anesthesia administration during this stay. Category 1B: Patient has history of documented sleep apnea, and HAS received any narcotic , sedative or anesthesia administration during this stay Category 2: Patient has SUSPECTED Obstructive Sleep Apnea, and HAS received any narcotic , sedative or anesthesia administration during this stay. Category 3: Patient has SUSPECTED Obstructive Sleep Apnea and HAS NOT received narcotic, sedative or anesthesia administration during this stay. Category 4: Outpatient in Procedural Areas with known sleep apnea or who screen positive for High Risk via the STOP/BANG questionnaire. Exam Exam Vital Signs Vital Signs Date Time Temp Pulse Resp B/P Pulse Ox O2 Delivery O2 Flow Rate FiO2 11/20/16 10:47 80 11/20/16 09:06 36.8 75 16 98/59 97 Room Air 11/20/16 05:15 79 11/20/16 03:50 37.0 79 16 100/59 95 Room Air General Appearance: Alert, Oriented X3, Cooperative HEENT/AIRWAY: MP 3, Neck Movement (OK), Mouth Opening (Wide), Other (Poor dentition) Lungs: Clear to Percussion, Normal Air Movement Heart: Regular Rate/Rhythm, Normal S1, Normal S2 Meds/Labs/Diagnostics Admission Meds Current Medications Pantoprazole 80 mg/Sodium Chloride 100 ml @ 10 mls/hr Q10H IV Last administered on 11/20/16t 03:49; Start 11/19/16 at 11:30 Thiamine HCl/ Folic Acid/ Magnesium Sulfate/ Multivitamins/ Sodium Chloride ( Vitamin B1 Inj/ Folic Acid Inj/ Magnesium Sulfate 50% Inj/MVI-12 Inj/Normal Saline) 1,015.2 ml @ 500 mls/ hr ONCE ONCE IV Last administered on 11/19/16 13:25; Start 11/19/16 at 11:05; Stop 11/19/16 at 13:06; Status DC Ketorolac Tromethamine (Toradol Inj) 30 mg ONCE ONCE IVPUSH Last administered on 11/19/16 13:32; Start 11/19/16 at 11:10; Stop 11/19/16 at 11:12; Status DC Labs Test 11/18/16 18:15 11/19/16 00:50 11/19/16 05:25 11/19/16 05:30 Prothrombin Time 14.5sec (8.1-12.5) Prothromb Time International Ratio 1.35ratio Magnesium Level 1.7mg/dL (1.6-2.6) Lipase 55U/L (13-60) Hold [place] Top Tube Received (Received) Urine Color Yellow (YELLOW) Urine Appearance Slightly cloudy Urine pH 7.5 (5.0-8.0) Urine Specific [place] 1.010 (1.003-1.035) Urine Protein Negativemg/dL (NEG,TRACE) Urine Glucose (UA) Negativemg/dL (NEGATIVE) Urine Ketones 15mg/dL (NEGATIVE) Urine Occult Blood Negative (NEGATIVE) Urine Nitrite Positive (NEGATIVE) Urine Bilirubin Negative (NEGATIVE) Urine Urobilinogen Normalmg/dL (NORMAL) Urine Leukocyte Esterase Negative (NEGATIVE) Urine RBC 0-2/hpf (0-2) Urine WBC 0-5/hpf (0-5) Urine Epithelial Cells Occasional/hpf (NONE-MOD) Urine Crystals None seen (NONE SEEN) Urine Bacteria Moderate/hpf (NONE-FEW) Urine Hyaline Casts None/lpf (NONE) Urine Granular Casts None seen (NONE SEEN) Urine Waxy Casts None seen (NONE SEEN) Urine Red Blood Cell Casts None seen (NONE SEEN) Urine White Blood Cell Casts None seen (NONE SEEN) Urine Mucus None seen (None Seen) Urine Trichomonas None seen (NONE SEEN) Urine Yeast None (NONE SEEN) Urinalysis Comment None Urine Culture Reflexed Indicated White Blood Count 3.6th/mm3 (3.8-10.1) Red Blood Count 2.94mil/mm3 (3.90-5.20) Mean Corpuscular Volume 96.3fL (81-100) Mean Corpuscular Hemoglobin 29.9pg (27.0-35.0) Mean Corpuscular Hemoglobin Concent 31.1% (32.0-37.0) Red Cell Distribution Width 15.9% (12.3-15.4) Platelet Count 71bil/L (150-400) Neutrophils (%) (Auto) 63.0% (40-74) Lymphocytes (%) (Auto) 29.2% (14-46) Monocytes (%) (Auto) 7.5% (4-12) Eosinophils (%) (Auto) 0% (0-5) Basophils (%) (Auto) 0.3% (0-3) Total Bilirubin 1.8mg/dL (0.0-1.2) Aspartate Amino Transf (AST/SGOT) 95U/L (0-50) Alanine Aminotransferase (ALT/SGPT) 30U/L (0-32) Alkaline Phosphatase 95U/L (25-150) Total Protein 6.0g/dL (6.4-8.4) Albumin 2.4g/dL (3.4-5.0) Test 11/20/16 04:50 11/20/16 09:13 Hemoglobin 7.9g/dL (12.0-15.6) Hematocrit 26.0% (35.0-46.0) Sodium Level 141mEq/L (134-144) Potassium Level 3.4mEq/L (3.5-5.2) Chloride Level 109mEq/L (97-108) Carbon Dioxide Level 23mmol/L (18-29) Blood Urea Nitrogen 16mg/dL (6-24) Creatinine 0.51mg/dL (0.57-1.00) Estimat Glomerular Filtration Rate 181mL/min (>59) Glucose Level 75mg/dL (60-99) Calcium Level 7.2mg/dL (8.5-10.1) Plan Impression Patient chart reviewed, patient interviewed and anesthestic plan with risks, benefits, and alternatives discussed, and informed consent obtained. NPO per Anesth. Guidelines: Yes ASA Physical Status: ASA3 Severe Disease Anesthetic Plan: MAC Bene/Risks/Altern/Consents: Yes HP Complete Prior to Induction: Yes Yadiel Louis MD Nov 20, 2016 10:55
--- NOTE | 2016-11-20 11:27 | NUR ---
Transfer to [facility] Patient transferred to [facility] for EGD @ 1045, remained NPO since midnight, protonix gtt infusing @ 10ml/hr, NS @ 20ml/hr. Tarry stool x 1 this a.m. & c/o mild nausea.
--- NOTE | 2016-11-20 11:36 | DRSVH ---
PROCEDURE: US ABDOMEN ([id number]) INDICATIONS: abdominal pain, nausea, vomiting TECHNIQUE: Real-time scanning was performed of the abdominal and retroperitoneal organs, with image documentatio n. COMPARISON: None. FINDINGS: Liver: Liver is normal in size and homogeneously increased in echotexture. Gallbladder: Surgically absent Biliary ducts: Intrahepatic bile ducts are non-dilated. Normal is 6-7 mm or less in diameter, or 10 mm or less post-cholecystectomy. Pancreas: Not well-seen Spleen: Spleen is normal in size and homogeneous in echotexture. Kidneys: Kidneys are normal in size and echotexture. Right kidney measures 13 cm long; left kidney measures 14 cm long. No hydronephrosis or nephrolithiasis. No solid masses. Aorta: Visualized aorta is normal in caliber at less than 3 cm. Iliacs: Proximal common iliac arteries are normal in caliber at less than 2.5 cm. IVC: Intrahepatic inferior vena cava is patent. Miscellaneous: No free abdominal fluid. IMPRESSION: No acute process. Hepatic steatosis. Dictated by: Goran Agosto M.D. on 11/20/2016 at 11:33 Approved by: Goran Agosto M.D. on 11/20/2016 at 11:34
--- NOTE | 2016-11-20 11:56 | PCM.ANEP1 ---
Post Anesthesia PACU Phase 1 Assessment Date of Service: Nov 20, 2016 Vital Signs Vital Signs Date Time Temp Pulse Resp B/P Pulse Ox O2 Delivery O2 Flow Rate FiO2 11/20/16 11:50 73 16 106/62 97 Room Air 11/20/16 11:46 73 14 102/59 97 Room Air 11/20/16 11:40 36.7 78 16 110/62 100 Simple Mask 4 11/20/16 10:47 80 11/20/16 09:06 36.8 75 16 98/59 97 Room Air 11/20/16 05:15 79 Anesthetic Administered: MAC Level of Alertness: Awake, talking GUY's with Equal Strength: Yes Pain: Yes Pain Scale Score: 8 Nausea or Vomiting: No CV Function & Hydration Stable: Yes Airway Device: Oxygen Delivery: Nasal Cannula Lungs: Clear to Percussion, Normal Air Movement PACU Phase 2 Assessment Complications: No Follow up Care: N/A Patient Instructions Provided: N/A Yadiel Louis MD Nov 20, 2016 11:56
--- NOTE | 2016-11-20 12:07 | CONS ---
[address] [address] CONSULTATION REPORT PATIENT: NGOC CONDE : 1965 MR#: [id number] ADMIT: 11/19/2016 JOB ID: [id number] DATE OF SERVICE: 11/20/2016 REQUESTING PROVIDER: Dr. Yeison Springer REASON FOR CONSULTATION: Endoscopy request for low grade hematemesis and mild anemia. HISTORY OF PRESENT ILLNESS: This is a 51-year-old female with a history of HIV on HAART. She comes in because of a couple of days of upper abdominal pain with radiation into the back associated with nausea and vomiting. The vomit has dark material and even small volumes of blood. Initially, there was a report of no melena, but the patient indicates that she has had melena as well in the last couple of days. She has lost approximately 30 pounds in the last 3-6 months unexplained, has early satiety. ALLERGIES: An antibiotic. MEDICATIONS: 1. Unknown HIV meds. 2. Meloxicam. 3. Ondansetron. PAST MEDICAL HISTORY: HIV. PAST SURGICAL HISTORY: The patient does not recall having her gallbladder out, but none was seen on CT. FAMILY HISTORY: Noncontributory. SOCIAL HISTORY: The patient has family members attempting to help her. She is apparently currently homeless. Has been incarcerated in the past. She drinks quite heavily and stopped a couple of days ago. REVIEW OF SYSTEMS: As per HPI. No other complaints. Her last emesis was this morning. PHYSICAL EXAMINATION: Blood pressure 98/59, pulse 75, breathing 16, temperature 36.8, 97% on room air. The patient had a slightly flat affect. Otherwise in no distress. Lungs clear bilaterally. Heart regular. No peripheral pitting edema. Abdomen was soft. I did not appreciate any focal masses or guarding. Minimal tenderness in the upper region. LABORATORIES: INR 1.35. Platelets were 71 on admission. Hemoglobin this morning is 7.9, hematocrit 26.0 MCV 96.3. White count just a little bit on the low side. BUN has in essence been relatively normal. Sodium 141, potassium 3.4, chloride 109, bicarb 23. BUN 16, creatinine 0.51. Glucose 75. Calcium 7.2, bilirubin 1.8. AST 95, ALT 30, alk phos 95, albumin 2.4. Lipase was 55. IMAGING: CT scan abdomen showed no acute disease. No free fluid or free air. No dilated loops of bowel to suggest obstruction. She did have evidence of cirrhosis and portal hypertension. She is apparently status post cholecystectomy. She has a 4 mm nonobstructing right kidney stones. There was a 2.2 cm right adrenal nodule, further imaging was recommended. She has diverticulosis, but no diverticulitis. The appendix was thought to be normal. ASSESSMENT AND RECOMMENDATIONS: A 51-year-old female with cirrhosis of uncertain etiology possibly related to alcohol, but further workup certainly seems reasonable and appropriate. She additionally apparently has human immunodeficiency virus and has taken medication intermittently over the last 12 years, none recently. She has had increasing symptoms of early satiety and weight loss over the last several months and recently developed abdominal pain, nausea, and vomiting precipitating this hospitalization. Emesis has demonstrated the presence of blood. She has not had voluminous hematemesis nor melena, and I think that the prospect of a variceal bleed to be quite unlikely. She has been on PPI drip quite appropriately. EGD is quite reasonable. I would like her on antibiotic considering she does appear to have cirrhosis and regardless of the source of blood loss they are clearly indicated in this scenario. The risks of the procedure were pursued including the possibility of bleeding, perforation, need for emergency surgery. The patient wishes to proceed. Considering her alcohol history, I would like to have Dr. Louis with Anesthesia manage her sedation. She will need to be managed acutely for possible alcohol withdrawal. Will have to follow up on the ultrasound to evaluate whether or not she does or does not have a gallbladder considering her presentation today.
--- NOTE | 2016-11-20 12:41 | ENDO ---
[address] [address] ENDOSCOPY PROCEDURE PATIENT: NGOC CONDE : 1965 MR#: [id number] ADMIT: 11/19/2016 JOB ID: [id number] DATE OF SERVICE: 11/20/2016 PROCEDURE: Esophagogastroduodenoscopy. INDICATIONS: A 51-year-old female with HIV, cirrhosis, relatively new onset nausea and vomiting, and low-grade hematemesis in the context of weight loss and some early satiety. EGD is therefore pursued. She was provided Rocephin in the context of her cirrhosis prior to the procedure. EQUIPMENT: Standard upper endoscope GIF H 180 J. SEDATION: Monitored anesthesia as provided by Dr. Yadiel Louis. COMPLICATIONS: None identified. PROCEDURE INFORMATION: After the risks and benefits were explained, written and verbal informed consent was obtained. The patient was brought into the endoscopy suite and placed into the left lateral decubitus position. Sedation was achieved using the above-stated medications with the addition of oxygen via nasal cannula. The scope was introduced into the mouth and advanced to the second portion of the duodenum. The scope was slowly withdrawn to carefully examine the mucosa for any defects or lesions. Ultimately the stomach was decompressed and the scope removed from the patient, who tolerated the procedure well. FINDINGS: 1. Esophagus: The patient had evidence of nonbleeding, very small varices that flattened out with air insufflation. There was no stigmata of any recent bleeding. The squamocolumnar junction appeared to extend up into the tubular esophagus and ended around 28 cm from the incisors. The GE junction was at about 38 cm from the incisors. No acute erosive changes. No ulcerations. No infectious pathology appreciated throughout. 2. Stomach: I did not appreciate any gastric varices. No new or old blood seen in the stomach. There was a small amount of yellow, bile-stained residual fluid easily suctioned with the endoscope. I did not appreciate any mass lesions nor any ulcers. Diffuse gastropathy was obvious throughout. In [place] in light of her moderate thrombocytopenia and mild coagulopathy I elected to not pursue biopsies at present. No outlet obstruction. The pylorus was widely patent. 3. Duodenum: No new or old blood throughout. There were, however, some very subtle punctate superficial ulcerations versus erosions consistent with meloxicam or other NSAID-induced mucosal injury. No evidence of any high-risk lesions. No new or old blood suggesting recent significant bleeding. ENDOSCOPIC DIAGNOSES: 1. Small sliding hiatal hernia. 2. 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 3. Small nonbleeding esophageal varices without stigmata. 4. Portal hypertensive gastropathy. 5. Duodenal erosions. RECOMMENDATIONS: 1. Full liquid diet. 2. Continue four more days of antibiotic. 3. The PPI drip can be discontinued and switched over to oral therapy. 4. H. pylori serology would be appropriate. 5. I recommend touching base with her primary providers in [place] to secure records and prior workup. The source for her cirrhosis is a little unclear. It may simply be related to alcohol, but further workup seems quite reasonable. I would recommend an alpha fetoprotein to correlate with her most recent imaging to screen for hepatoma. This should be done every six months. I would additionally recommend hepatitis C and B viral serologies. Iron profile, ferritin, and a ceruloplasmin would be appropriate. I would additionally recommend VALDEMAR along with antimitochondrial antibody and anti smooth muscle antibody. A quantitative IgM level would also be appropriate. Tissue transglutaminase IgA and tissue transglutaminase IgG would be reasonable in this context, especially with the undiagnosed weight loss. Ultimately, I would recommend she obtain close followup with an HIV specialist as well. 6. The precise source for all of her symptoms is not clearly identified at EGD today. I note the ultrasound confirms the absence of a gallbladder and the biliary tree is nondilated. 7. For now I would recommend strict abstinence from nonsteroidal anti-inflammatory therapy in that the subtle multifocal superficial ulcerations in the duodenum could conceivably be contributing to her presentation.
[2016-11-20] MEDS: HYDROmorphone 0.5 mg/0.5 mL iSecure Syringe IVPUSH PRN ×2 (14:49→21:57)
[2016-11-20] MEDS: Potassium Chloride 20 mEq/15 mL 15mL Oral Soln PO SCH ×2 (16:06→21:57)
--- NOTE | 2016-11-20 16:59 | NUR ---
Social Work- Multidisciplinary Rounds Pt discussed in rounds. Pt to receive EGD today. Pt anticipated to discharge in approximately 2 days. SW unable to see pt today due to high census. SW will continue to follow for discharge planning and to complete assessment. MOE Vazquez
[2016-11-20 18:53] LABS: APPEARANCE,URINE CLEAR (CLEAR,HAZY); COLOR,URINE YELLOW (YELLOW); OCCULT BLOOD,URINE NEGATIVE (NEGATIVE); PH,URINE 7.5 (5.0-8.0)
--- NOTE | 2016-11-20 19:48 | PCM.PNMED ---
Subjective Date of Service Nov 20, 2016 Subjective Overnight Events. No acute events overnight. Patient is resting in bed comfortably and in very mild acute distress. The patient reports continued abdominal pain. The patient denies headache, dizziness , sore throat, cough, chest pain, shortness of breath, nausea, vomiting, constipation, and diarrhea. The patient is voiding and eliminating without difficulty. The patient is ambulating without difficulty. She reports very mild nausea. She is patiently awaiting Upper GI scope. Exam Vital Signs Vital Sign - Last Date Time Temp Pulse Resp B/P Pulse Ox O2 Delivery O2 Flow Rate FiO2 11/20/16 05:15 79 11/20/16 03:50 37.0 16 100/59 95 Room Air Intake and Output 11/19/16 11/19/16 11/20/16 Cumulative From/Thru 15:00 23:00 07:00 11/18/16 18:00 - 11/20/16 06:56 Intake Total 1306 ml 1012 ml 4318 ml Output Total 1800 ml 1800 ml Balance 1306 ml -788 ml 2518 ml Intake Oral 637 ml 637 ml IV Total 1306 ml 375 ml 3681 ml Output Urine Total 1800 ml 1800 ml # Voids 2 2 # Bowel Movements 2 2 Exam General: Mild distress, well-developed, well-nourished, somewhat somnolent as awaken from sleep. HEENT: Normocephalic, atraumatic. External ears without defect. Pupils equal, round, and reactive to light and accommodation. Anicteric sclerae, moist conjunctivae. Oropharynx free of erythema and cobble stoning with moist mucosa. Neck: Supple with full range of motion. No jugular venous distension. No bruits. No lymphadenopathy or thyromegaly. Cardiovascular: Regular rate and rhythm with no murmurs, rubs, or gallops appreciated Pulmonary: Clear to auscultation bilaterally with no crackles, wheezes, or rhonchi. Normal respiratory effort with no use of accessory muscles. Abdomen: Bowel tones present. Soft, RUQ and RLQ tenderness, positive segundo's sign, nondistended. No hepatosplenomegaly or masses appreciated. No rebound tenderness. Extremities: No clubbing, cyanosis, edema, or lymphadenopathy appreciated. Skin: Normal temperature, turgor, and texture; no rash, ulcers. Neurological: Cranial nerves grossly intact. Normal muscle strength, tone, and bulk. Reflexes, coordination, and sensory function within normal limits. No known gait impairment. Psychiatric: Normal mood and affect. Alert and oriented to person, place, and time. IVs and Medications Medications Reviewed: Medications were reviewed in detail Lab and Diagnostics Result Diagram: 11/20/1644911/20/16449 Microbiology Item Value Date Time Urine Culture Received 11/19/16 0050 Urine,Random Sterile Container Pending X-Rays, CTs and MRIs PROCEDURE: CT ABDOMEN AND PELVIS WITH CONTRAST (PNL-7102) IMPRESSION: 1. No acute disease process identified. 2. No free fluid or free air. 3. No dilated loops of bowel. 4. Hepatic cirrhosis with sequela of portal venous hypertension including gastroesophageal, mesenteric and perisplenic venous varices. 5. Status post cholecystectomy. 6. 4 mm nonobstructing right renal stone. 7. 2.2 cm right adrenal nodule. Recommend dedicated MRI of the adrenal glands for definitive characterization. 8. Colonic diverticulosis without evidence of diverticulitis. 1. The appendix is normal. Dictated and Approved by: Jayne Vigil MD, PhD on 11/18/2016 at 21:36 12-lead ECG Sinus Tachycardia Additional Diagnostics ENDOSCOPIC DIAGNOSES: Small sliding hiatal hernia. 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 Small nonbleeding esophageal varices without stigmata. Portal hypertensive gastropathy. Duodenal erosions. Assessment & Plan Mariano Guevara is a 51 year old female with past medical history of HIV, who presents to the ED with chief complaint of abdominal pain found to have guiaic positive emesis with normocytic anemia. Normocytic Anemia, Present on admission. Active Unclear if this is secondary to an acute upper GI bleed, however hemoglobin has been very slowly downtrending and patient did have guiaic positive emesis in the ED. May be secondary to hemodilution as well. - Monitor H/H q4h. - Transfusion goal: If hemoglobin is less than 7, transfuse 2 units PRBC's. - Dr. Glass with GI following with recommendations. - Upper Gi scope per above. - Reported Hematuria. UA negative, Repeat UA pending. CT showed non-obs stone. Abdominal Pain, Present on admission. Active Patient had 10/10 pain on presentation, worse on the right side. Positive Segundo 's sign. Patient mention she has never had her gallbladder removed, but CT scan report shows status post cholecystectomy. 4 mm nonobstructing stone on CT on the right. Worse with movement. - Abdominal US as above. - Morphine 0.5 mg IV q4h for pain - Zofran for nausea Alcohol dependence, Present on admission. Active Patient has been drinking 6 beers a day for the last month, reportedly 2 days out from her last drink - CIWA protocol started - Ativan as needed - Banana bag started HIV, Present on admission, Chronic - Will order CD4 and Viral Load - On and off Truvada and "another HIV med" for the last 12 years. Code Status: Full code Acetaminophen for mild pain when necessary. Bowel regimen Senna and MiraLAX scheduled and PRN. Zofran when necessary for nausea and vomiting. SubQ heparin held for now. SCDs in place. Social: Currently Homeless, Mother lives in [place]. Disposition: Likely here for > 2 midnights, Dependent upon abdominal pain and GI bleed. Will be discharged to home when medically stable. Pain Evaluation: Adequate Pain Control GI Prophylaxis: Proton Pump Inhibitor (Protonix drip) VTE Prophylaxis: SCDs Resuscitation Status: CPR: Attempt Resuscitation Attending Statement The patient was seen and examined together with Dr. Sarabia on 11/20/2016 and I agree with the history, exam and plan as outlined in the note above. . ERIC SARABIA DO Nov 20, 2016 07:32 Krishna Souza MD Nov 22, 2016 07:37
[2016-11-20] MEDS: Pantoprazole 20 mg ER24 Tablet PO SCH (21:57)
[2016-11-21 03:59] VITALS: BP 98/58; PULSE 77; RESP 16; O2SAT 99
[2016-11-21 04:33] LABS: BASOPHILS % (AUTO) 0.5 % (0-3); EOSINOPHILS % (AUTO) 4.8 % (0-5); MONOCYTES % (AUTO) 10.1 % (4-12); Mean Corpuscular Hemoglobin 30.7 pg (27.0-35.0); Mean Corpuscular Volume 96.2 fL (81-100); NEUTROPHILS % (AUTO) 45.2 % (40-74); Platelet Count 71 bil/L (150-400)
--- NOTE | 2016-11-21 05:25 | NUR ---
Pain/Rest Pt did have 7/10 pain at beginning of the shift and received IVP dilaudid with relief. Pt was able to rest through most of the car shifter.
[2016-11-21 08:22] VITALS: BP 95/58; PULSE 83; RESP 18; O2SAT 96
[2016-11-21] MEDS: Multivit-Miner-Folic Acid-Iron Tablet PO SCH (08:34)
[2016-11-21] MEDS: HYDROmorphone 0.5 mg/0.5 mL iSecure Syringe IVPUSH PRN ×2 (08:34→22:33)
[2016-11-21] MEDS: Pantoprazole 20 mg ER24 Tablet PO SCH ×2 (08:34→20:30)
[2016-11-21] MEDS ORDERED: EMTR1TAB12 PO (10:17)
[2016-11-21] MEDS ORDERED: DAPS100T2 PO (10:17)
[2016-11-21] MEDS ORDERED: DARU1TAB PO (10:17)
[2016-11-21] MEDS ORDERED: RANI150C4 PO (10:17)
--- NOTE | 2016-11-21 11:25 | NUR ---
Social Work Note: Multidisciplinary Rounds Pt was discussed in AM rounds today, per MD pt condition remains unchanged. Viral Load pending. Per pt is not medically ready for discharge at this time. Per MD, pt is ambulating without difficulty. SW to follow up with pt regarding any discharge planning needs. No MD orders at this time. SW to continue to follow. MOE Gray
[2016-11-21] MEDS: cefTRIAXone Inj 1,000 MG in Dextrose 5% Minibag Plus 50 ML IV SCH (12:17)
[2016-11-21 12:30] VITALS: BP 96/57; PULSE 72; RESP 20; O2SAT 98
--- NOTE | 2016-11-21 14:46 | NUR ---
Case Management: Clarification of patient status: inpatient per MD order on 11/21/16. Nakita Steven RN
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
[2016-11-21 16:47] VITALS: BP 98/56; PULSE 82; RESP 24; O2SAT 98
[2016-11-21 20:00] VITALS: PULSE 89
--- NOTE | 2016-11-21 21:15 | PCM.PNMED ---
Subjective Date of Service Nov 21, 2016 Subjective Assessment: Patient awake and alert on exam. She states that her abdominal pain continues however is somewhat alleviated. Events Overnight: No acute events overnight. ROS: Denies fever/chills, nausea/vomiting, headache, weakness, chest pain, shortness of breath, increased swelling in hands or feet. Exam Vital Signs Vital Sign - Last Date Time Temp Pulse Resp B/P Pulse Ox O2 Delivery O2 Flow Rate FiO2 11/21/16 20:00 89 11/21/16 16:47 37.1 24 98/56 98 Room Air 11/20/16 11:40 4 Intake and Output 11/20/16 11/20/16 11/21/16 Cumulative From/Thru 15:00 23:00 07:00 11/18/16 18:00 - 11/21/16 05:34 Intake Total 100 ml 1861 ml 400 ml 6679 ml Output Total 700 ml 600 ml 3100 ml Balance 100 ml 1161 ml -200 ml 3579 ml Intake Oral 1600 ml 400 ml 2637 ml IV Total 100 ml 261 ml 4042 ml Output Urine Total 700 ml 600 ml 3100 ml # Voids 2 # Bowel Movements 2 4 Exam General: Mild distress, well-developed, well-nourished HEENT: Normocephalic, atraumatic. External ears without defect. Pupils equal, round, and reactive to light and accommodation. Anicteric sclerae, moist conjunctivae. Neck: Supple with full range of motion. No jugular venous distension. No bruits. No lymphadenopathy or thyromegaly. Cardiovascular: Regular rate and rhythm with + systolic murmur, no rubs, and no gallops appreciated Pulmonary: Clear to auscultation bilaterally with no crackles, wheezes, or rhonchi. Normal respiratory effort with no use of accessory muscles. Abdomen: Bowel tones present. Soft, RUQ and RLQ tenderness, positive segundo's sign, nondistended. No hepatosplenomegaly or masses appreciated. No rebound tenderness. Extremities: No clubbing, cyanosis, edema, or lymphadenopathy appreciated. Skin: Normal temperature, turgor, and texture; no rash, ulcers. Neurological: Cranial nerves grossly intact. Normal muscle strength, tone, and bulk. Reflexes, coordination, and sensory function within normal limits. No known gait impairment. Psychiatric: Normal mood and affect. Alert and oriented to person, place, and time IVs and Medications IV Fluids 100 mL ceftriaxone Medications Reviewed: Medications were reviewed in detail Medications Pantoprazole Dilaudid Multivitamin Lab and Diagnostics Result Diagram: 11/21/1641911/21/16419 Microbiology Item Value Date Time Urine Culture Received 11/19/16 0050 Urine,Random Sterile Container Pending X-Rays, CTs and MRIs PROCEDURE: CT ABDOMEN AND PELVIS WITH CONTRAST ([id number]) IMPRESSION: 1. No acute disease process identified. 2. No free fluid or free air. 3. No dilated loops of bowel. 4. Hepatic cirrhosis with sequela of portal venous hypertension including gastroesophageal, mesenteric and perisplenic venous varices. 5. Status post cholecystectomy. 6. 4 mm nonobstructing right renal stone. 7. 2.2 cm right adrenal nodule. Recommend dedicated MRI of the adrenal glands for definitive characterization. 8. Colonic diverticulosis without evidence of diverticulitis. 1. The appendix is normal. Dictated and Approved by: Jayne Vigil MD, PhD on 11/18/2016 at 21:36 12-lead ECG Sinus Tachycardia Additional Diagnostics ENDOSCOPIC DIAGNOSES: Small sliding hiatal hernia. 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 Small nonbleeding esophageal varices without stigmata. Portal hypertensive gastropathy. Duodenal erosions. Assessment & Plan Mariano Guevara is a 51 year old female with past medical history of HIV, who presents to the ED with chief complaint of abdominal pain found to have guiaic positive emesis with normocytic anemia. Normocytic Anemia, Present on admission. Active Unclear if this is secondary to an acute upper GI bleed, however hemoglobin has been very slowly downtrending and patient did have guiaic positive emesis in the ED. May be secondary to hemodilution as well. - H/H stable at 8.1. Reassess with morning labs. - Transfusion goal: If hemoglobin is less than 7, transfuse 2 units PRBC's. - Dr. Glass with GI following with recommendations. - Upper GI scope per above. - Reported Hematuria. UA negative, Repeat UA negative. CT showed non-obs renal stone Abdominal Pain, Present on admission. Active Patient had 10/10 pain on presentation, worse on the right side. Positive Segundo 's sign. Patient mention she has never had her gallbladder removed, but CT scan report shows status post cholecystectomy. 4 mm nonobstructing stone on CT on the right. Worse with movement. - Abdominal US as above. -Dilaudid 0.5 mg IV q4h for pain - Zofran for nausea Alcohol dependence, Present on admission. Active Patient has been drinking 6 beers a day for the last month, reportedly 2 days out from her last drink - CIWA protocol started - Ativan as needed - DC Banana bag HIV, Present on admission, Chronic - Order CD4 and Viral Load results pending. - On and off Truvada and "another HIV med" for the last 12 years. Code Status: Full code Acetaminophen for mild pain when necessary. Bowel regimen Senna and MiraLAX scheduled and PRN. Zofran when necessary for nausea and vomiting. SubQ heparin held for now. SCDs in place. Social: Currently Homeless, Mother lives in [place]. Disposition: Likely here for > 2 midnights, Dependent upon abdominal pain and GI bleed. Will be discharged to home when medically stable. GI Prophylaxis: Proton Pump Inhibitor (Protonix drip) VTE Prophylaxis: SCDs Resuscitation Status: CPR: Attempt Resuscitation Attending Statement The patient was seen and examined together with Dr. Mejia on 11/21/16 and I have added additional information to the note above. Edil Mejia DO Nov 21, 2016 21:15 Kamilla Spain DO Nov 26, 2016 13:15
--- NOTE | 2016-11-21 21:52 | PROG NOTE ---
[address] [address] PROGRESS NOTE PATIENT: NGOC CONDE : 1965 MR#: [id number] ADMIT: 11/19/2016 JOB ID: [id number] DATE: 11/21/2016 SUBJECTIVE: The patient is feeling much better. No further nausea and vomiting. She has tolerated diet. She is hoping to be discharged home soon. We had a discussion about alcohol and the need for long-term permanent abstinence. The patient was not entirely sure what kind of workup she has previously received for her underlying liver disease. OBJECTIVE: The patient was in good spirits, conversational, alert, oriented, appropriate. Blood pressure 92/56, pulse 82, breathing 24, afebrile 37.1, 98% on room air. LABORATORY DATA: Hemoglobin, hematocrit stable. Creatinine 0.50. Bilirubin 1.5. H. pylori serology is still pending. ASSESSMENT AND RECOMMENDATIONS: A 51-year-old female with human immunodeficiency virus and underlying cirrhosis of uncertain etiology. I suspect alcohol may be the primary etiology. The patient is of the understanding that one or more of her HIV medications over the years may have contributed to her cirrhosis. At any rate, she needs lifelong abstinence from alcohol and informs me that her friends and loved ones will be looking out for her to try to help her in this endeavor. She is essentially asymptomatic at this point. I think it would be reasonable to have her follow up short term in primary care. I am happy to see her from a gastroenterology standpoint down here if she does not already have a investment banking manager in the [facility].
[2016-11-21 22:00] VITALS: BP 95/55; PULSE 87; RESP 16; O2SAT 98
[2016-11-22 04:03] VITALS: BP 96/59; PULSE 90; RESP 20; O2SAT 96
[2016-11-22 04:33] LABS: BASOPHILS % (AUTO) 1.1 % (0-3); EOSINOPHILS % (AUTO) 2.8 % (0-5); MONOCYTES % (AUTO) 13.3 % (4-12); NEUTROPHILS % (AUTO) 39.7 % (40-74); Platelet Count 82 bil/L (150-400)
--- NOTE | 2016-11-22 06:10 | NUR ---
Rest/Food/Labs Pt was able to rest throughout the weight shifter. Pt's family members have brought food into the pt's room and pt has been eating the food and tolerating the PO intake with no c/o nausea and vomiting. Pt's K+ this AM is 3.4 and has been made aware. MRSA nasal swab results came back negative and pt is now off contact precautions.
[2016-11-22] MEDS ORDERED: Potassium Chloride 20 mEq SR Tablet PO ONE (06:20)
[2016-11-22 09:12] VITALS: BP 95/58; PULSE 77; RESP 16; O2SAT 98
[2016-11-22] MEDS: Multivit-Miner-Folic Acid-Iron Tablet PO SCH (09:15)
[2016-11-22] MEDS: Pantoprazole 20 mg ER24 Tablet PO SCH (09:16)
[2016-11-22 10:24] VITALS: PULSE 76
[2016-11-22] MEDS ORDERED: oxyCODONE-Acetamin 5-325 mg Tablet PO PRN (11:20)
[2016-11-22] MEDS: cefTRIAXone Inj 1,000 MG in Dextrose 5% Minibag Plus 50 ML IV SCH (11:37)
[2016-11-22 11:44] VITALS: BP 99/55; PULSE 75; RESP 18; O2SAT 95
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
[2016-11-22] MEDS ORDERED: DAPS100T2 PO (15:31)
[2016-11-22] MEDS ORDERED: RANI150C4 PO (15:31)
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
--- NOTE | 2016-11-22 16:24 | NUR ---
Social Work Note: Initial Assessment/Discharge/Multidisciplinary Rounds Data& Assessment: EMR reviewed. Pt was discussed in AM rounds today, per pt is medically ready to discharge home via POV. ERIC met with pt and pt adult daughter at bedside to confirm discharge plan and assess for any unmet needs, SW role explained. Pt provided with Discharge planning checklist. Mariano Guevara is a 51 year old female admitted on 11/19/2016 for GI bleed/Anemia. Pt has [facility] Medicaid. Pt lives in the [facility] and is homeless but occasionally stays with family or her mom. She plans to discharge to her moms house at time of discharge. Pt independent at baseline with all ADL's. Pt does not have SNF or HH hx. Pt does not use any DME. Pt independent with self care during this hospitalization and is ambulating at baseline. MD does not identify any concerns for capacity for self care. Pt goes to [facility] in [place] for primary care. Pt also connected with the [facility] for extra support in the community. Pt provided with DPOA/AD paperwork. Pt also provided with community resources. Pt wanted to utilize her Medicaid Transport benefit. Pt daughter notified that she will not be able to transport with her mom/pt. Pt daughter insisted that she has been able to do this before and she explained she will call and set up transportation herself. ERIC provided pt daughter with [facility] phone number for transport and also [employer] number if she calls after hours. Pt was also calling her mother. No other discharge needs identified. All updated and agreeable to plan. Plan: Per pt is medically ready to discharge home via POV. Pt daughter arranging transportation herself. Resources provided. No other discharge needs identified. All updated and agreeable to plan. MOE Gray Addendum: 11/22/16 at 1633 by ERMIAS KING Amended: Links added.
--- NOTE | 2016-11-22 17:16 | NUR ---
Discharge Pt left with daughter at 1700 to wait for yellow cab for a ride back to [place]. Pt A&Ox3, vitals stable, and was escorted out by [employer] and daughter. All discharge instructions gone over and understood, changes in medications understood, all questions answered. Follow up apt made and pt is aware that it is tomorrow. All belongings taken with.
== END 2016-11-22 17:31 | disposition home or self-care (01) | DRG 391 ==
LOC: SED 17:44 → PCC 11-19 03:06 → OBSVTOIN 11-19 03:06 → INTOOBSV 11-19 03:06 → PCC 11-19 03:38
PROVIDERS: ADMIT Internal Medicine; ATTEND Internal Medicine
PROC: 0DJ08ZZ Inspection of Upper Intestinal Tract, Via Natural or Artificial Opening Endoscopic (ICD-10-PCS; principal; 2016-11-20 10:00)
DX: R10.9 Unspecified abdominal pain (principal); B20 Human immunodeficiency virus [HIV] disease; K92.0 Hematemesis; I85.00 Esophageal varices without bleeding; K76.6 Portal hypertension; N20.0 Calculus of kidney; K70.30 Alcoholic cirrhosis of liver without ascites; K70.9 Alcoholic liver disease, unspecified; K31.89 Other diseases of stomach and duodenum; F10.20 Alcohol dependence, uncomplicated; D64.9 Anemia, unspecified; E87.6 Hypokalemia; Z59.0 Homelessness